=== PATIENT | male | born 1985 | race Caucasian/White ===

== ENCOUNTER 2016-06-18 10:38 | Emergency (ER) | payer SELFPAY | END 2016-06-18 12:18 | disposition home or self-care (01) | LOC: D.ER 10:38 | DX: S90.122A Contusion of left lesser toe(s) without damage to nail, initial encounter (principal); W01.0XXA Fall on same level from slipping, tripping and stumbling without subsequent striking against object, initial encounter; Y93.89 Activity, other specified; Y92.89 Other specified places as the place of occurrence of the external cause; F41.9 Anxiety disorder, unspecified ==

== ENCOUNTER 2019-01-07 10:56 | Emergency (ER) | payer SELFPAY ==
[~2019-01-07] VITALS: Ht 165.1 cm; Wt 72.7 kg
[2019-01-07 11:18] VITALS: Ht 165.1 cm; Wt 72.7 kg
[2019-01-07 12:06] LABS: ALBUMIN 3.8 g/dL (3.4-5.0); ALKALINE PHOSPHATASE 94 U/L (46-116); ALT (SGPT) 32 U/L (10-68); BILIRUBIN - TOTAL 0.26 mg/dL (0.2-1.3); CALC OSMOLALITY 280 mosm/kg (275-300); CARBON DIOXIDE 28.5 mmol/L (21.0-32.0); CHLORIDE - SERUM 102 mmol/L (98-107); GLUCOSE 117 mg/dL (74-106); POTASSIUM - SERUM 4.4 mmol/L (3.5-5.1); PROTEIN - SERUM 7.7 g/dL (6.4-8.2); SODIUM 141 mmol/L (136-145); UREA NITROGEN 11 mg/dL (7-18); eGFR NON AFRICAN AMERICAN > 90 mL/min (90-120)
[2019-01-07 12:09] LABS: AMYLASE - SERUM 27 U/L (25-115); LIPASE 58 U/L (73-393)
[2019-01-07 12:10] LABS: TROPONIN-I < 0.017 ng/mL (0.000-0.060)
[2019-01-07 12:12] LABS: APPEARANCE CLEAR (CLEAR); BACTERIA FEW /hpf (NONE SEEN); BILIRUBIN NEGATIVE (NEGATIVE); COLOR YELLOW (YELLOW); EPITHELIAL CELLS OCC /hpf (0-5); GLUCOSE NEGATIVE (NEGATIVE); KETONE NEGATIVE (NEGATIVE); MUCUS <1+ /lpf (NONE SEEN); NITRITE NEGATIVE (NEGATIVE); PROTEIN NEGATIVE (NEGATIVE); UROBILINOGEN NORMAL (NORMAL); WHITE CELLS - URINE OCC /hpf (0-5)
[2019-01-07 12:15] LABS: BASOPHILS 0.3 % (0-2); EOSINOPHILS 0.5 % (0-7); HEMOGLOBIN 14.5 g/dL (13.5-17.5); IMMATURE GRANULOCYTES 0.3 % (0-5); LYMPHOCYTES 17.7 % (15-50); MCH 31.5 pg (26.0-34.0); MCHC 36.3 g/dL (31.0-37.0); MEAN PLATELET VOLUME 10.2 fL (7.4-10.4); MONOCYTES 13.4 % (2-11); NEUTROPHILS 67.8 % (40-80); PLATELET COUNT 266 10x3/uL (130-400); RDW 13.1 % (11.5-14.5); WBC 7.6 10x3/uL (4.8-10.8)
[2019-01-07] MEDS ORDERED: HYDROCODONE-A1 UDTA2 PO (13:56)
[2019-01-07 14:09] VITALS: BP 130/70
== END 2019-01-07 14:11 | disposition home or self-care (01) ==
LOC: D.ER 10:56
PROVIDERS: Family Medicine
DX: N20.0 Calculus of kidney (principal); R10.9 Unspecified abdominal pain